=== PATIENT | female | born 1935 | race Caucasian/White ===

== ENCOUNTER → 2016-06-05 | Outpatient (CLI) | payer OTHER ==
[~2016-06-05] MED LIST: ANTIVERT12.5 MG PO; INHALER; LEVOTHYROXIN0.025 MG PO
== END ==
LOC: ULTRA 12:24
DX: R06.02 Shortness of breath (principal); R91.8 Other nonspecific abnormal finding of lung field

== ENCOUNTER → 2017-01-09 | Outpatient (CLI) | payer OTHER | LOC: RAD 10:13 | DX: R06.02 Shortness of breath (principal) ==

== ENCOUNTER → 2018-01-07 | Outpatient (CLI) | payer OTHER | LOC: CAT 10:53 | DX: Z13.6 Encounter for screening for cardiovascular disorders (principal); E78.00 Pure hypercholesterolemia, unspecified ==

== ENCOUNTER → 2019-10-20 | Outpatient (CLI) | payer OTHER | LOC: RAD 13:39 | PROVIDERS: ATTEND Internal Medicine | DX: J44.9 Chronic obstructive pulmonary disease, unspecified (principal) ==

== ENCOUNTER 2021-01-03 08:24 | Inpatient (IN) | payer OTHER ==
[~2021-01-03] VITALS: Ht 165.1 cm; Wt 75.8 kg
[2021-01-03 08:36] VITALS: BP 149/59
[2021-01-03 09:49] LABS: CALCIUM 8.3 mg/dL (8.5-10.1); CREATININE 0.8 mg/dL (0.6-1.0)
[2021-01-03 09:56] LABS: ALBUMIN 2.8 g/dL (3.4-5.0); TOTAL BILIRUBIN 0.4 mg/dL (0.2-1.0); TOTAL PROTEIN 6.5 g/dL (6.4-8.2)
[2021-01-03 11:45] LABS: BASOPHILS 0.1 % (0.0-2.0); HEMATOCRIT 39.8 % (37.0-47.0); HEMOGLOBIN 13.3 gm/dL (12.0-15.0); LYMPHOCYTES 6.8 % (24.0-44.0); MCH 30.8 pg (26.0-34.0); MCHC 33.5 g/dL (28.0-37.0); MCV 91.7 fL (80.0-100.0); MONOCYTES 7.2 % (1.0-8.0); PLATELET COUNT 197 thou/uL (150-400); POLYS 85.9 % (36.0-66.0); RBC 4.34 mil/uL (4.20-5.00); RDW 13.3 % (10.5-14.5); WBC 5.8 thou/uL (4.0-11.0)
[2021-01-03 13:55] VITALS: BP 110/45
[2021-01-03 14:10] VITALS: BP 107/62
--- NOTE | 2021-01-03 15:26 | NUR ---
PATIENT ADMIT TO 352 AT 1400 WITH 3L/NC. PATIENT A/O X4. PATIENT RECEIVED HER DAUGHTER CALL THAT ASKING PATIENT SIGN AMA THEN FAMILY WILL PICK HER UP. NOTIFIED DR RODRIGUEZ AND MANJU SUP. PATIENT LEFT AT 1530.
--- NOTE | 2021-01-04 07:15 | EKG ---
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 : 1935 Requested By: Suzanna Morris Order Number: [id number] MD: Eliceo Gramajo Measurements Intervals [place] Rate: 90 P: 48 MN: 166 QRS: -21 QRSD: 115 T: 35 QT: 353 QTc: 432 Interpretive Statements Sinus rhythm Nonspecific intraventricular conduction delay Inferior infarct, old Compared to ECG 09/07/2014 10:51:40 Intraventricular conduction delay now present Myocardial infarct finding still present Electronically Signed On 01-04-2021 7:15:28 COUNTER MAKER by Eliceo Gramajo [email or web address] <ELECTRONICALLY SIGNED> By: Eliceo Gramajo MD, [facility] 01/04/21 0715 Eliceo Gramajo MD, [facility] /EPI
== END 2021-01-03 15:30 | disposition left against medical advice (07) | DRG 177 ==
LOC: ER 08:24 → EROBS 12:29 → 3W 15:03
PROVIDERS: Emergency Medicine; ADMIT Hospitalist; ATTEND Hospitalist
DX: U07.1 COVID-19 (principal); J96.01 Acute respiratory failure with hypoxia; J12.82 Pneumonia due to coronavirus disease 2019; J44.0 Chronic obstructive pulmonary disease with (acute) lower respiratory infection; E03.9 Hypothyroidism, unspecified; I10 Essential (primary) hypertension; F03.90 Unspecified dementia, unspecified severity, without behavioral disturbance, psychotic disturbance, mood disturbance, and anxiety; Z53.29 Procedure and treatment not carried out because of patient's decision for other reasons; Z87.440 Personal history of urinary (tract) infections; Z79.899 Other long term (current) drug therapy; Z87.891 Personal history of nicotine dependence
CPT/HCPCS: 10879

== ENCOUNTER → 2021-03-07 | Outpatient (CLI) | payer OTHER | LOC: RAD 12:13 | PROVIDERS: ATTEND Internal Medicine | DX: J44.9 Chronic obstructive pulmonary disease, unspecified (principal); R91.8 Other nonspecific abnormal finding of lung field; Z86.16 Personal history of COVID-19 ==